=== PATIENT | female | born 1955 | race Caucasian/White ===

== ENCOUNTER → 2022-10-22 | Outpatient (CLI) | payer MEDICARE, BC, SELFPAY ==
--- NOTE | 2022-10-22 | VUL_PTH ---
PATIENT: SEFERINO ORTIZ LOC: [facility] U#:[id number] AGE/SX: 67/F ROOM: RE10/22/[address]: Dr. Colton Kapadia MD : [id number] BED: DIS: 10/22/2022 SPEC #: [id number] RECD: 10/22/22 16:26 STATUS: CAIN MAYCO #: [id number] JASVIR: 10/22/22 00:[address]: Colton Kapadia DEPT: SURGICAL PATHOLOGY RECD BY: Kael Rodriguez Tissues: Vulva, NOS Procedures: Special Stain Group I Surgery Specimen Level IV GMS Stain (control) HEADER OPERATION: Vulvar biopsy PRE-OP DIAGNOSIS: Lichen sclerosus atrophicus TISSUE SUBMITTED: Vulvar biopsy MICROSCOPIC DIAGNOSIS Vulvar biopsy: Mild dermal chronic inflammation, acanthosis and superficial acute inflammation. Negative for dysplasia. See comment. ANNMARIE:liam 10/26/2022 COMMENT Special stain for fungi is negative for organisms; matched control is appropriate. MICROSCOPIC DESCRIPTION Slides are reviewed. GROSS DESCRIPTION Received in fixative is one container labeled with the patient's name and designated vulvar biopsy. The specimen consists of one irregular fragment of light melo soft tissue that measures 0.6 x 0.3 x 0.1 cm. The specimen is totally submitted in one cassette. / AM:liam 10/25/2022 :[address] [facility]: [id number]
== END | disposition home or self-care (01) ==
LOC: LABSPEC 15:54
PROVIDERS: Visit Provider Obstetrics & Gynecology
DX: L90.9 Atrophic disorder of skin, unspecified (principal)
CPT/HCPCS: 88305; 88312